=== PATIENT | male | born 1995 | race African-American/Black ===

== ENCOUNTER 2017-09-16 16:14 | Emergency (ER) | payer MEDICAID ==
[~2017-09-16] VITALS: Ht 175.3 cm; Wt 64.4 kg
[~2017-09-16 16:14] MED LIST: LACTULOSE20 GM/301 ORAL
--- NOTE | 2017-09-16 16:46 | Emergency Room Report ---
History of Present Illness General Chief Complaint: Lower Extremity Injury Source: Patient Present Illness HPI Patient presents with complaints of left ankle pain Reports that 2 days ago pain started He feels that there was some mild swelling initially However the swelling has gotten better as he has been sitting Denies any obvious trauma however he reports that he does do a lot of hiking and walks a lot Pain is worse with ambulation and bearing weight Allergies: Coded Allergies: No Known Allergies (Unverified , 12/03/13) Patient History Past Medical History: see triage record Pertinent Family History: none Reviewed Nursing Documentation: PMH: Agreed; PSxH: Agreed Nursing Documentation-PMH Past Medical History: No Stated History Review of Systems All Other Systems: negative except mentioned in HPI Physical Exam Vital Signs Date Time Temp Pulse Resp B/P (MAP) Pulse Ox O2 Delivery O2 Flow Rate FiO2 09/16/17 16:38 98.2 82 18 146/89 98 Room Air 98.2 Sp02 EP Interpretation: reviewed, normal General Appearance: well appearing, no apparent distress Head: normocephalic, atraumatic Eyes: bilateral eye PERRL, bilateral eye EOMI ENT: normal pharynx Neck: full range of motion, supple Respiratory: lungs clear Cardiovascular #1: regular rate, rhythm Gastrointestinal: non tender Musculoskeletal: other - Patient is somewhat uncomfortable on palpation medial malleolus region there was a small bruise noted proximal to that, no obvious swelling, Neurologic: alert, oriented x3 Skin: other - As above Lymphatic: no adenopathy Medical Decision Making Diagnostic Impression: Primary Impression: Injury of lower extremity Additional Impression: Ankle sprain ER Course Given the patient's presentation Imaging studies were obtained no obvious acute pathology is found Patient is ambulatory did not require any splint at this time And will have close outpatient follow-up Other X-Ray Diagnostic Results Other X-Ray Diagnostic Results : X-Ray ordered: Left ankle # of Views/Limited Vs Complete: 3 View Indication: Pain EP Interpretation: Yes Interpretation: no dislocation, no soft tissue swelling, no fractures Impression: No acute disease Electronically Signed by: Wei Thomas DO Last Vital Signs Date Time Temp Pulse Resp B/P (MAP) Pulse Ox O2 Delivery O2 Flow Rate FiO2 09/16/17 16:38 98.2 82 18 146/89 98 Room Air 98.2 Status: improved Disposition: HOME, SELF-CARE Condition: Improved Scripts Ibuprofen* (MOTRIN*) 600 Mg Tablet 600 MG ORAL Q8H PRN for For Pain, #20 TAB 0 Refills Prov: Wei Thomas DO 09/16/17 Additional Instructions: Patient is provided with the discharge instructions notified to follow up with primary doctor in the next 2-3 days otherwise return to the er with any worsening symptoms. Please note that this report is being documented using DRAGON technology. This can lead to erroneous entry secondary to incorrect interpretation by the dictating instrument. Wei Thomas DO Sep 16, 2017 16:46
[2017-09-16] MEDS ORDERED: IBUPROFEN600 MG ORAL (17:06)
[2017-09-16 17:11] VITALS: BP 146/89
--- NOTE | 2017-09-17 14:44 | Diagnostic Imaging Report ---
Indication: Pain Technique: XRAY Ankle Compl Min 3v L Comparison: None Findings: No acute fracture. Ankle mortise intact on these nonstress views. Imaged hindfoot grossly unremarkable. No appreciable ankle joint effusion. No radiopaque foreign body. Impression: No acute fracture or dislocation.
== END 2017-09-16 17:14 | disposition home or self-care (01) ==
LOC: EMR 17:08
DX: S93.402A Sprain of unspecified ligament of left ankle, initial encounter (principal); X58.XXXA Exposure to other specified factors, initial encounter; Y92.9 Unspecified place or not applicable
CPT/HCPCS: 99283

== ENCOUNTER 2018-09-12 21:38 | Emergency (ER) | payer MEDICAID ==
[~2018-09-12] VITALS: Ht 172.7 cm; Wt 60.8 kg
[~2018-09-12 21:38] MED LIST changes: +IBUPROFEN600 MG ORAL
[2018-09-12 21:45] VITALS: BP 131/86
--- NOTE | 2018-09-12 21:58 | Emergency Room Report ---
History of Present Illness General Chief Complaint: Abdominal Pain Source: Patient Present Illness HPI Is a 23-year-old male with no past medical history. He presents with complaint of abdominal pain. Started last night after eating hot fries. He said when he does he get burning sensation. Woke up today with burning sensation to the upper abdomen area. Worse with eating. No vomiting. No diarrhea. Decreased appetite today. Denies any other complaint. Similar symptom in the past. Pain is crampy and burning in nature. 7 out of 10. Allergies: Coded Allergies: No Known Allergies (Unverified , 12/03/13) Patient History Past Medical History: none, see triage record, old chart reviewed Past Surgical History: none Pertinent Family History: none Social History: Denies: smoking Immunizations: other Reviewed Nursing Documentation: PMH: Agreed; PSxH: Agreed Nursing Documentation-PMH Past Medical History: No Stated History Review of Systems Eye: Denies: eye pain, blurred vision ENT: Denies: ear pain, nose congestion, throat swelling Respiratory: Denies: cough, shortness of breath Cardiovascular: Denies: chest pain, palpitations Gastrointestinal: Reports: abdominal pain; Denies: diarrhea, nausea, vomiting Musculoskeletal: Denies: back pain, joint pain Skin: Denies: rash Neurological: Denies: headache, numbness Endocrine: Denies: increased thirst, increased urine Hematologic/Lymphatic: Denies: easy bruising All Other Systems: negative except mentioned in HPI Physical Exam Vital Signs Date Time Temp Pulse Resp B/P (MAP) Pulse Ox O2 Delivery O2 Flow Rate FiO2 09/12/18 21:42 97.9 69 18 131/86 (101) 95 Room Air vitals normal Sp02 EP Interpretation: reviewed, normal General Appearance: well appearing, no apparent distress, alert Head: normocephalic, atraumatic Eyes: bilateral eye PERRL, bilateral eye EOMI ENT: hearing grossly normal, normal pharynx Neck: full range of motion, supple, no meningismus Respiratory: chest non-tender, lungs clear, normal breath sounds Cardiovascular #1: regular rate, rhythm, no murmur Gastrointestinal: normal bowel sounds, non tender, no mass, no organomegaly, no bruit, non-distended Musculoskeletal: back normal, gait/station normal, normal range of motion Psychiatric: mood/affect normal Medical Decision Making Diagnostic Impression: Primary Impression: Abdominal pain Qualified Codes: R10.84 - Generalized abdominal pain ER Course Patient presents with abdominal pain. No evidence of an acute abdomen. Better now. Will discharge home. CT/MRI/US Diagnostic Results CT/MRI/US Diagnostic Results : Imaging Test Ordered: CT abdomen and pelvis Impression Read by radiologist. Fluid filled small bowel, correlate with gastroenteritis. Copious amount of stool in the right and transverse colon. Last Vital Signs Date Time Temp Pulse Resp B/P (MAP) Pulse Ox O2 Delivery O2 Flow Rate FiO2 09/12/18 21:42 97.9 69 18 131/86 (101) 95 Room Air Status: improved Disposition: HOME, SELF-CARE Condition: Stable Scripts Ibuprofen* (MOTRIN*) 600 Mg Tablet 600 MG ORAL THREE TIMES A DAY, #30 TAB 0 Refills Prov: Solomon Cesar MD 09/13/18 Patient Instructions: Abdominal Pain, Adult Additional Instructions: Follow-up with your doctor in 7 days. Return if worse. Solomon Cesar MD Sep 12, 2018 21:58
[2018-09-12] MEDS: Mylanta II UD 30ml ORAL ONE (22:16)
[2018-09-12] MEDS: Lidocaine 2% Visc 15ml soln ORAL ONE (22:17)
[2018-09-12 22:26] LABS: BASOPHILS % (AUTO) 1.6 % (0.0-2.0); EOSINOPHILS % (AUTO) 0.5 % (0.0-3.0); HEMATOCRIT 45.8 % (42.0-52.0); HEMOGLOBIN 15.5 G/DL (14.2-18.0); MEAN CORPUSCULAR VOLUME 90 FL (80-99); MONOCYTES % (AUTO) 8.4 % (1.0-10.0); NEUTROPHILS % (AUTO) 46.5 % (45.0-75.0); PLATELET COUNT 190 K/UL (150-450); RED BLOOD COUNT 5.09 M/UL (4.70-6.10); RED CELL DISTRIBUTION WIDTH 11.3 % (11.6-14.8); WHITE BLOOD COUNT 7.8 K/UL (4.8-10.8)
[2018-09-12 22:28] LABS: APPEARANCE,URINE CLEAR; BILIRUBIN, URINE NEGATIVE (NEGATIVE); GLUCOSE, URINE (UA) NEGATIVE (NEGATIVE); KETONES,URINE NEGATIVE (NEGATIVE); LEUKOCYTE ESTERASE ,URINE NEGATIVE (NEGATIVE); NITRITE,URINE NEGATIVE (NEGATIVE); PH,URINE 6 (4.5-8.0); PROTEIN,URINE NEGATIVE (NEGATIVE); UROBILINOGEN,URINE NORMAL MG/DL (0.0-1.0)
[2018-09-12 22:29] LABS: COLOR,URINE YELLOW
[2018-09-12 22:42] LABS: ANION GAP 6 mmol/L (5-15); BLOOD UREA NITROGEN 8 mg/dL (7-18); CALCIUM 9.7 MG/DL (8.5-10.1); CARBON DIOXIDE 32 MMOL/L (21-32); CHLORIDE 105 MMOL/L (98-107); CREATININE 0.9 MG/DL (0.55-1.30); POTASSIUM 4.3 MMOL/L (3.5-5.1); SODIUM 143 MMOL/L (136-145)
[2018-09-12 22:48] LABS: ALANINE AMINOTRANSFERASE 19 U/L (12-78); ALBUMIN 4.2 G/DL (3.4-5.0); ALBUMIN/GLOBULIN RATIO 1.3 (1.0-2.7); ALKALINE PHOSPHATASE 69 U/L (46-116); ASPARTATE AMINO TRANSFERASE 17 U/L (15-37); BILIRUBIN,TOTAL 0.5 MG/DL (0.2-1.0)
[2018-09-12] MEDS ORDERED: Isovue-300 100ml vial INJ PRN (23:15)
[2018-09-12] MEDS: Morphine Sulfate 4mg/ml Inj (IV USE ONLY) IVP ONE (23:54)
[2018-09-13] MEDS ORDERED: IBUPROFEN600 MG ORAL (00:12)
[2018-09-13 00:15] VITALS: BP 125/82
--- NOTE | 2018-09-13 09:53 | Diagnostic Imaging Report ---
Clinical Indication: Abdominal pain, 7 out of 10 gastric pain and burning for one day Technique: No oral contrast utilized, per emergency room physician request IV administration nonionic contrast. Venous phase spiral acquisition obtained through the abdomen and pelvis. Multiplanar reconstructions were generated. Total dose length product 562.72 mGycm. CTDIvol(s) 10.75 mGy. Dose reduction achieved using automated exposure control Comparison: none Findings: There is questionably a colonic diverticulum noted in the distal descending colon. The colon lumen is upper limits normal in caliber, gas and stool-filled. The appendix is normal. Small bowel loops are fluid-filled but nondistended. No free or loculated intraperitoneal gas or fluid is evident. The distal esophagus, stomach, duodenum are unremarkable. The liver, gallbladder, bile ducts, pancreas, spleen, adrenals, kidneys are all unremarkable. No pelvic mass or adenopathy. No retroperitoneal or mesenteric mass or adenopathy. The prostate is somewhat prominent for age. The included lung bases are clear. The bones are unremarkable. Impression: No acute abnormality Possible colonic diverticulosis. No evidence of diverticulitis Nonspecific prominent colonic gas and stool Prominent, for age, prostate This agrees with the preliminary interpretation provided overnight by [facility]. The CT scanner at [facility] is accredited by the [employer] and the scans are performed using protocols designed to limit radiation exposure to as low as reasonably achievable to attain images of sufficient resolution adequate for diagnostic evaluation.
== END 2018-09-13 00:15 | disposition home or self-care (01) ==
LOC: EMR 21:57
DX: R10.9 Unspecified abdominal pain (principal)
CPT/HCPCS: 36415; 74177; 80053; 81003; 83690; 85025; 96374; 96375; 99284; J2270; Q9967; S0028

== ENCOUNTER 2018-12-13 22:34 | Emergency (ER) | payer MEDICAID ==
[~2018-12-13] VITALS: Ht 170.2 cm; Wt 64.4 kg
--- NOTE | 2018-12-13 23:05 | NUR ---
ED Nurse Note: Pt ambulated to ED from home c/o 12/05 abdominal pain x1.5weeks, reports N denies V/D. VSS Pt is A&Ox4
[2018-12-13 23:16] VITALS: BP 138/90
[2018-12-13] MEDS ORDERED: PRILOSEC OTC20 MG ORAL (23:26)
--- NOTE | 2018-12-13 23:26 | Emergency Room Report ---
History of Present Illness General Chief Complaint: Abdominal Pain Source: Patient Present Illness HPI 23-year-old male with no past medical history he presents with chief lien abdominal pain. Onset about a week now. Mostly supraumbilical and epigastric. He also said he felt his food moving after eat. He felt nauseous after eating. No diarrhea. No chills but denies any other complaint. Pain is minimal. Allergies: Coded Allergies: No Known Allergies (Unverified , 12/03/13) Patient History Past Medical History: see triage record, old chart reviewed Past Surgical History: none Pertinent Family History: none Social History: Denies: smoking Immunizations: other Reviewed Nursing Documentation: PMH: Agreed; PSxH: Agreed Nursing Documentation-PMH Past Medical History: No Stated History Review of Systems Eye: Denies: eye pain, blurred vision ENT: Denies: ear pain, nose congestion, throat swelling Respiratory: Denies: cough, shortness of breath Cardiovascular: Denies: chest pain, palpitations Gastrointestinal: Reports: abdominal pain; Denies: diarrhea, nausea, vomiting Musculoskeletal: Denies: back pain, joint pain Skin: Denies: rash Neurological: Denies: headache, numbness Endocrine: Denies: increased thirst, increased urine Hematologic/Lymphatic: Denies: easy bruising All Other Systems: negative except mentioned in HPI Physical Exam Vital Signs Date Time Temp Pulse Resp B/P (MAP) Pulse Ox O2 Delivery O2 Flow Rate FiO2 12/13/18 22:58 98.2 68 18 138/90 (106) 98 Room Air Vitals normal Sp02 EP Interpretation: reviewed, normal General Appearance: well appearing, no apparent distress, alert Head: normocephalic, atraumatic Eyes: bilateral eye PERRL, bilateral eye EOMI ENT: hearing grossly normal, normal pharynx Neck: full range of motion, supple, no meningismus Respiratory: chest non-tender, lungs clear, normal breath sounds Cardiovascular #1: regular rate, rhythm, no murmur Gastrointestinal: normal bowel sounds, non tender, no mass, no organomegaly, no bruit, non-distended Musculoskeletal: back normal, gait/station normal, normal range of motion Psychiatric: mood/affect normal Medical Decision Making Diagnostic Impression: Primary Impression: Abdominal pain Qualified Codes: R10.13 - Epigastric pain ER Course Patient presents with abdominal pain. This mass that he is feeling is peristalsis. I felt no mass on examination. He has no pain. No evidence of acute abdomen. Will discharge home. Last Vital Signs Date Time Temp Pulse Resp B/P (MAP) Pulse Ox O2 Delivery O2 Flow Rate FiO2 12/13/18 23:16 98.2 18 138/90 98 Room Air 12/13/18 23:16 68 Status: unchanged Disposition: HOME, SELF-CARE Condition: Stable Scripts Omeprazole Magnesium (PRILOSEC OTC) 20 Mg Tablet. 20 MG ORAL DAILY, #30 TAB Prov: Solomon Cesar MD 12/13/18 Referrals: [facility],REFERRING (PCP) Patient Instructions: Abdominal Pain, Adult Additional Instructions: Follow-up with your doctor in 7 days. Return if symptoms worsen. Solomon Cesar MD Dec 13, 2018 23:26
[2018-12-13 23:30] VITALS: BP 138/90
--- NOTE | 2018-12-13 23:30 | NUR ---
ER DISCHARGE NOTE: Patient is cleared to be discharged per ERMD, pt is aox4, on room air, with stable vital signs. pt was given dc and prescription instructions, pt was able to verbalize understanding, pt id band removed. pt is able to ambulate with steady gait. pt took all belongings.
== END 2018-12-13 23:30 | disposition home or self-care (01) ==
LOC: EMR 23:15
DX: R10.13 Epigastric pain (principal)
CPT/HCPCS: 99282

== ENCOUNTER 2019-01-05 20:03 | Emergency (ER) | payer MEDICAID ==
[~2019-01-05] VITALS: Ht 172.7 cm; Wt 62.6 kg
[~2019-01-05 20:03] MED LIST changes: +PRILOSEC OTC20 MG ORAL
[2019-01-05 20:15] VITALS: BP 143/93
--- NOTE | 2019-01-05 20:16 | NUR ---
ED Nurse Note: PT AMBULATED TO ED C/O NECK PAIN, RIGHT ARM, EARACHE AND SORE THROAT X 4 DAYS DENIES TRAUMA TO AREAS
[2019-01-05] MEDS ORDERED: Ketorolac 30mg Inj IV ONE (20:45)
[2019-01-05] MEDS ORDERED: Omnipaque-300 100ml vial INJ PRN (20:45)
[2019-01-05 21:06] LABS: BASOPHILS % (AUTO) 2.1 % (0.0-2.0); EOSINOPHILS % (AUTO) 0.9 % (0.0-3.0); HEMATOCRIT 48.4 % (42.0-52.0); HEMOGLOBIN 16.7 G/DL (14.2-18.0); LYMPHOCYTES % (AUTO) 40.4 % (20.0-45.0); MEAN CORPUSCULAR VOLUME 87 FL (80-99); MONOCYTES % (AUTO) 5.7 % (1.0-10.0); NEUTROPHILS % (AUTO) 50.9 % (45.0-75.0); PLATELET COUNT 199 K/UL (150-450); RED BLOOD COUNT 5.55 M/UL (4.70-6.10); RED CELL DISTRIBUTION WIDTH 10.6 % (11.6-14.8); WHITE BLOOD COUNT 9.5 K/UL (4.8-10.8)
[2019-01-05 21:07] LABS: APPEARANCE,URINE CLEAR; BILIRUBIN, URINE NEGATIVE (NEGATIVE); COLOR,URINE PALE YELLOW; GLUCOSE, URINE (UA) NEGATIVE (NEGATIVE); KETONES,URINE NEGATIVE (NEGATIVE); LEUKOCYTE ESTERASE ,URINE 1+ (NEGATIVE); NITRITE,URINE NEGATIVE (NEGATIVE); PH,URINE 5 (4.5-8.0); PROTEIN,URINE NEGATIVE (NEGATIVE); UROBILINOGEN,URINE NORMAL MG/DL (0.0-1.0)
[2019-01-05 21:21] LABS: ANION GAP 3 mmol/L (5-15); BLOOD UREA NITROGEN 11 mg/dL (7-18); CALCIUM 9.1 MG/DL (8.5-10.1); CARBON DIOXIDE 33 MMOL/L (21-32); CHLORIDE 105 MMOL/L (98-107); CREATININE 0.9 MG/DL (0.55-1.30); POTASSIUM 3.7 MMOL/L (3.5-5.1); SODIUM 141 MMOL/L (136-145)
[2019-01-05 21:31] LABS: ALANINE AMINOTRANSFERASE 25 U/L (12-78); ALBUMIN 4.4 G/DL (3.4-5.0); ALBUMIN/GLOBULIN RATIO 1.3 (1.0-2.7); ALKALINE PHOSPHATASE 69 U/L (46-116); ASPARTATE AMINO TRANSFERASE 13 U/L (15-37); BILIRUBIN,TOTAL 0.4 MG/DL (0.2-1.0)
--- NOTE | 2019-01-05 22:21 | Diagnostic Imaging Report ---
Indication: Neck pain. Mass. Evaluate. Sore throat. No trauma Technique: Continuous helical imaging of the neck was obtained transaxially from the skull base to the upper thoracic spine during intravenous administration of nonionic contrast. 2-D coronal and sagittal reformatted images were obtained. Total Dose length Product (DLP): 361.[address] Dose Index Volume (CTDIvol): 12.5 mGy Comparison: None Findings: Skull base structures are unremarkable. Mastoids are clear bilaterally. The visualized nasopharynx, oropharynx, and hypopharynx appears unremarkable. There is no mass or asymmetry identified. Supraglottic structures including the epiglottis and aryepiglottic folds appear normal. The larynx is unremarkable. The subglottic airway is clear. There is no lymphadenopathy. The parotid, thyroid, submandibular and sublingual glands appear unremarkable. Impression: Negative contrast-enhanced CT of the neck. [facility] has communicated the preliminary results to the Emergency Department. Their findings are largely concordant with this report. The CT scanner at [facility] is accredited by the [employer] and the scans are performed using dose optimization techniques as appropriate to a performed exam including Automatic Exposure control.
--- NOTE | 2019-01-05 22:23 | Emergency Room Report ---
History of Present Illness General Chief Complaint: Pain Source: Patient Present Illness HPI 23-year-old male with no symptom past medical history here complaining of 2 days of sore throat, posterior headache, and 1 day of right-sided neck stiffness. Patient reports that he went to an urgent care yesterday and was diagnosed with strep throat and was started on azithromycin. Reports that he woke up this morning feeling stiff in the right side of the neck now radiating to right shoulder. Denies any recent strenuous physical activity, fall or injury. Denies recent dental work. Denies photophobia, nausea vomiting, abdominal pain. Denies living in a dormitory, recent travel. Patient has full range of motion of neck however rotational movements to the right side of neck are with difficulty. Has not taken medication for symptom relief. Allergies: Coded Allergies: No Known Allergies (Unverified , 12/03/13) Patient History Past Medical History: see triage record Past Surgical History: unable to obtain Pertinent Family History: none Social History: Reports: smoking Immunizations: UTD Reviewed Nursing Documentation: PMH: Agreed; PSxH: Agreed Nursing Documentation-PMH Past Medical History: No Stated History Review of Systems All Other Systems: negative except mentioned in HPI Physical Exam Vital Signs Date Time Temp Pulse Resp B/P (MAP) Pulse Ox O2 Delivery O2 Flow Rate FiO2 01/05/19 20:11 98.4 71 16 143/93 (110) 100 Room Air Sp02 EP Interpretation: reviewed, normal General Appearance: no apparent distress, alert, GCS 15, non-toxic Head: normocephalic, atraumatic Eyes: bilateral eye normal inspection, bilateral eye PERRL ENT: hearing grossly normal, no angioedema, normal voice, TMs + canals normal, uvula midline, tonsillar swelling, pharyngeal erythema Neck: supple, thyroid normal, no meningismus, no bony tend, supple/symm/no masses, tender - Right sided cervical lymph node anteriorly Respiratory: chest non-tender, lungs clear, normal breath sounds, no rhonchi, no respiratory distress, no retraction, no wheezing, speaking full sentences Cardiovascular #1: regular rate, rhythm, no edema, no murmur Cardiovascular #2: 2+ carotid (R), 2+ carotid (L) Gastrointestinal: normal bowel sounds, non tender, soft, non-distended, no guarding, no rebound Rectal: deferred Genitourinary: normal inspection, no CVA tenderness Musculoskeletal: back normal, gait/station normal, normal range of motion, non- tender, no calf tenderness Neurologic: alert, oriented x3, responsive, motor strength/tone normal, sensory intact, speech normal Psychiatric: judgement/insight normal, memory normal, mood/affect normal, no suicidal/homicidal ideation Skin: no rash Lymphatic: adenopathy - Anterior cervical Medical Decision Making PA Attestation Diagnosis and treatment plans were reviewed and discussed with my supervising physician Dr. Chapa Diagnostic Impression: Primary Impression: Tonsillitis with exudate Additional Impression: Cervical strain ER Course 23-year-old male with no symptom past medical history here complaining of 2 days of sore throat, posterior headache, and 1 day of right-sided neck stiffness. Patient reports that he went to an urgent care yesterday and was diagnosed with strep throat and was started on azithromycin. Reports that he woke up this morning feeling stiff in the right side of the neck now radiating to right shoulder. Denies any recent strenuous physical activity, fall or injury. Denies recent dental work. Denies photophobia, nausea vomiting, abdominal pain. Denies living in a dormitory, recent travel. Patient has full range of motion of neck however rotational movements to the right side of neck are with difficulty. Has not taken medication for symptom relief. Ddx considered but are not limited to: strep pharyngitis, URI, tonsillitis, peritonsillar abscess, influneza, meningitis, peritonsillar abscess, cervical sprain, strain, mass Vital signs: are WNL, pt. is afebrile H&PE are most consistent with: Tonsillitis with exudate, cervical spine sprain versus strain ORDERS: CBC, CMP, UA, CT neck soft tissue with contrast, Augmentin, ibuprofen 800, Robaxin ED INTERVENTIONS: Lidocaine patch, dexamethasone, NS bolus DISCHARGE: At this time pt. is stable for d/c to home. Will provide printed patient care instructions, and any necessary prescriptions. Care plan and follow up instructions have been discussed with the patient prior to discharge. Follow-up with your primary care provider for further worsening symptoms return to the emergency room at this time no mass is noted. However if worsening symptoms such as photophobia, headache and nausea return to the emergency room. CT/MRI/US Diagnostic Results CT/MRI/US Diagnostic Results : Imaging Test Ordered: CT neck with contrast, soft tissue Impression FINDINGS: The visualized portions of the middle and posterior fossa of the brain are normal. The soft tissues of the nasopharynx, oropharynx and hypopharynx appear normal. The infratemporal fossa, parapharyngeal and pharyngeal mucosal spaces are preserved. Minimal bilateral shoddy adenopathy is noted. The vascular structures are normal. The parotid, submandibular and thyroid glands are normal in size and attenuation. The airway is patent and the trachea is midline. No bony abnormalities are seen. IMPRESSION: Unremarkable CT of the neck no evidence for inflammatory process. No evidence for abscess Last Vital Signs Date Time Temp Pulse Resp B/P (MAP) Pulse Ox O2 Delivery O2 Flow Rate FiO2 01/05/19 21:57 98.4 01/05/19 20:15 71 16 143/93 100 Room Air Disposition: HOME, SELF-CARE Condition: Stable Patient Instructions: Cervical Strain and Sprain With Rehab-SportsMed, Tonsillitis, [id number] Additional Instructions: Follow-up with your primary care provider for further worsening symptoms return to the emergency room at this time no mass is noted. However if worsening symptoms such as photophobia, headache and nausea return to the emergency room. Abida Kendrick Jan 05, 2019 22:23
[2019-01-05] MEDS ORDERED: ROBAXIN-500MG ORAL (22:24)
[2019-01-05] MEDS ORDERED: IBU800 MG PO (22:24)
[2019-01-05] MEDS ORDERED: AUGMENTIN 875-1 EAC1 ORAL (22:24)
[2019-01-05 22:30] VITALS: BP 143/93
--- NOTE | 2019-01-05 22:30 | NUR ---
ER DISCHARGE NOTE: Patient is cleared to be discharged per ERMD, pt is aox4, on room air, with stable vital signs. Pt able to walk with steady gait. Discharge instructions given to patient verbalized understanding. Pt took all belongings. ID band removed and IV removed without complication
== END 2019-01-05 22:30 | disposition home or self-care (01) ==
LOC: EMR 20:46
DX: J03.90 Acute tonsillitis, unspecified (principal); S16.1XXA Strain of muscle, fascia and tendon at neck level, initial encounter; X58.XXXA Exposure to other specified factors, initial encounter; Y93.9 Activity, unspecified; Y92.9 Unspecified place or not applicable; F17.200 Nicotine dependence, unspecified, uncomplicated
CPT/HCPCS: 36415; 70491; 80053; 81001; 85025; 96361; 96374; J1885; J8540; Q9967; Z7502; 99284; J7030

== ENCOUNTER 2019-02-07 22:29 | Emergency (ER) | payer MEDICAID ==
[~2019-02-07] VITALS: Ht 172.7 cm; Wt 62.6 kg
[~2019-02-07 22:29] MED LIST changes: +AUGMENTIN 875-1 EAC1 ORAL; +IBU800 MG PO; +ROBAXIN-500MG ORAL
--- NOTE | 2019-02-07 23:00 | NUR ---
ED Nurse Note: pt walked in c/o right earache and sorethroat for past three days but denies other symptoms. pt afebrile, vss, will cont monitor.
[2019-02-07 23:01] VITALS: BP 145/89
--- NOTE | 2019-02-07 23:29 | NUR ---
ED Nurse Note: pt reports that he had strep throat a month ago which he was taking amoxicillin for.
--- NOTE | 2019-02-07 23:53 | Emergency Room Report ---
History of Present Illness General Chief Complaint: Sore Throat Source: Patient Present Illness HPI Is a 23-year-old male with no past medical history. He presents with complaint of sore throat and ear pain. Onset for last 3 days. Also with low-grade fever. Slight congestion. No cough. No nausea no vomiting. Worse with eating and drinking. Better with rest. Pain is 8 out of 10. Allergies: Coded Allergies: No Known Allergies (Unverified , 12/03/13) Patient History Past Medical History: see triage record, old chart reviewed Past Surgical History: none Pertinent Family History: none Social History: Denies: smoking Immunizations: other Reviewed Nursing Documentation: PMH: Agreed Nursing Documentation-PMH Past Medical History: No Stated History Review of Systems Eye: Denies: eye pain, blurred vision ENT: Reports: ear pain, throat pain; Denies: nose congestion, throat swelling Respiratory: Denies: cough, shortness of breath Cardiovascular: Denies: chest pain, palpitations Gastrointestinal: Denies: abdominal pain, diarrhea, nausea, vomiting Musculoskeletal: Denies: back pain, joint pain Skin: Denies: rash Neurological: Denies: headache, numbness Endocrine: Denies: increased thirst, increased urine Hematologic/Lymphatic: Denies: easy bruising All Other Systems: negative except mentioned in HPI Physical Exam Vital Signs Date Time Temp Pulse Resp B/P (MAP) Pulse Ox O2 Delivery O2 Flow Rate FiO2 02/07/19 22:52 98.2 68 18 145/89 (107) 98 Room Air Vitals normal Sp02 EP Interpretation: reviewed, normal General Appearance: well appearing, no apparent distress, alert Head: normocephalic, atraumatic Eyes: bilateral eye PERRL, bilateral eye EOMI ENT: hearing grossly normal, normal pharynx, TMs + canals normal, pharyngeal erythema Neck: full range of motion, supple, no meningismus Respiratory: chest non-tender, lungs clear, normal breath sounds Cardiovascular #1: regular rate, rhythm, no murmur Gastrointestinal: normal bowel sounds, non tender, no mass, no organomegaly, no bruit, non-distended Musculoskeletal: back normal, normal range of motion, gait/station normal Psychiatric: mood/affect normal Medical Decision Making Diagnostic Impression: Primary Impression: Pharyngitis Qualified Codes: J02.9 - Acute pharyngitis, unspecified ER Course Patient with pharyngitis. Most likely viral in nature. Because of the duration of his symptoms, will put on antibiotics. No evidence of peritonsillar abscess, retropharyngeal abscess or Andrews angina. Last Vital Signs Date Time Temp Pulse Resp B/P (MAP) Pulse Ox O2 Delivery O2 Flow Rate FiO2 02/07/19 23:01 98.2 68 18 145/89 98 Room Air Status: improved Disposition: HOME, SELF-CARE Condition: Stable Referrals: NON PHYSICIAN (PCP) Patient Instructions: Sore Throat Additional Instructions: Increase Fluids. Follow with your doctor in 7 days. Return if worse. Solomon Cesar MD Feb 07, 2019 23:53
[2019-02-07] MEDS ORDERED: ZITHROMAX250 MG ORAL (23:55)
[2019-02-07] MEDS ORDERED: IBUPROFEN600 MG ORAL (23:55)
[2019-02-07 23:58] VITALS: BP 145/89
--- NOTE | 2019-02-07 23:58 | NUR ---
ER DISCHARGE NOTE: Patient is cleared to be discharged per ERMD, pt is aox4, with stable vital signs. pt was given dc and prescription instructions, pt was able to verbalize understanding, pt id band removed without complications. pt is able to ambulate with steady gait. pt took all belongings and left with mother
== END 2019-02-07 23:58 | disposition home or self-care (01) ==
LOC: EMR 23:25
DX: J02.9 Acute pharyngitis, unspecified (principal)
CPT/HCPCS: 99282

== ENCOUNTER 2019-12-10 20:34 | Emergency (ER) | payer MEDICAID ==
[~2019-12-10] VITALS: Ht 172.7 cm; Wt 67.1 kg
[~2019-12-10 20:34] MED LIST changes: +ZITHROMAX250 MG ORAL
[2019-12-10 20:40] VITALS: BP 150/81
--- NOTE | 2019-12-10 20:40 | NUR ---
ED Nurse Note: Pt walked into ED from home c/o lower back pain 12/05. Denies trauma, denies fall. Pt states long drive to [place] and slept in the car for a long period of time, when woke up pt has pain worsened with movement.
[2019-12-10] MEDS ORDERED: Ketorolac 30mg Inj ONE (21:11)
[2019-12-10] MEDS ORDERED: CYCLOBENZAPRINE10 MG ORAL (21:13)
[2019-12-10] MEDS ORDERED: NAPROXEN500 M2 ORAL (21:13)
[2019-12-10] MEDS ORDERED: Ketorolac 30mg Inj IM ONE (21:15)
[2019-12-10 21:17] VITALS: BP 138/80
--- NOTE | 2019-12-10 21:17 | NUR ---
ER DISCHARGE NOTE: Patient is cleared to be discharged per ERMD, pt is aox4, on room air, with stable vital signs. Encouraged pt to stay 15 minutes to monitor for medication reaction but refused. pt was given dc and prescription instructions, pt was able to verbalize understanding, pt id band removed. pt is able to ambulate with steady gait. pt took all belongings.
--- NOTE | 2019-12-10 22:25 | Emergency Room Report ---
History of Present Illness General Chief Complaint: Back Pain-No Injury Source: Patient Present Illness HPI Disclaimer: Please note that this report is being documented using DRAGON technology. This can lead to erroneous entry secondary to incorrect interpretation by the dictating instrument. HPI: 24-year-old male presents with mid back pain for 1 week. He reports feeling muscle tightness with pain with moving. Denies any cough, shortness of breath, fever, nausea, vomiting or urinary complaints. Pain is currently 8 out of 10. He has not really taken any medication to relieve his pain. No history of back pain in the past. Allergies: Coded Allergies: No Known Allergies (Unverified , 12/03/13) COVID-19 Screening Contact w/high risk pt: No Experienced COVID-19 symptoms?: No COVID-19 Testing performed [employer]: No Patient History Reviewed Nursing Documentation: PMH: Agreed; PSxH: Agreed Nursing Documentation-PMH Past Medical History: No Stated History Review of Systems All Other Systems: negative except mentioned in HPI Physical Exam Vital Signs Date Time Temp Pulse Resp B/P (MAP) Pulse Ox O2 Delivery O2 Flow Rate FiO2 12/10/19 20:37 98.4 80 16 150/81 (104) 99 Room Air Sp02 EP Interpretation: reviewed, normal General Appearance: well appearing, no apparent distress Head: normocephalic, atraumatic Eyes: bilateral eye PERRL, bilateral eye EOMI ENT: hearing grossly normal, moist mucus membranes Neck: full range of motion, supple Respiratory: lungs clear, normal breath sounds, no rhonchi, no respiratory distress, no retraction, no wheezing Cardiovascular #1: normal peripheral pulses, regular rate, rhythm, no murmur Gastrointestinal: non tender, soft, non-distended, no guarding Musculoskeletal: other - No midline tenderness of the spine step-off or deformity, paraspinal muscle tightness noted and tenderness of the paraspinal muscles noted at the mid thoracic spine no CVA tenderness bilaterally Neurologic: alert, oriented x3, no focal defects Skin: normal color, warm/dry Medical Decision Making Diagnostic Impression: Primary Impression: Back pain ER Course Differential diagnosis included but not limited to muscle spasm, back strain, arthritis, contusion, less likely UTI, pneumonia or PE. Patient in no acute distress. He had bilateral paraspinal muscle tenderness noted. Pain was worse with movement. I do suspect most likely a musculoskeletal etiology. Did recommend anti-inflammatories and muscle relaxants. Stretching, p.o. hydration. Did recommend follow-up with PMD and referral to PT if not improved. Low suspicion for fracture or spinal cord lesion. Patient neurologically intact ambulatory. Discharge home with return precautions. Last Vital Signs Date Time Temp Pulse Resp B/P (MAP) Pulse Ox O2 Delivery O2 Flow Rate FiO2 12/10/19 21:17 98.1 81 16 138/80 99 Room Air Disposition: HOME, SELF-CARE Condition: Stable Scripts Cyclobenzaprine Hcl* (FLEXERIL*) 10 Mg Tablet 10 MG ORAL QHS PRN for back pain, #10 TAB Prov: Deandre Gaston M.D. 12/10/19 Naproxen* (NAPROXEN*) 500 Mg Tablet 500 MG ORAL TWICE A WEEK PRN for For Pain, #60 TAB 0 Refills Prov: Deandre Gaston M.D. 12/10/19 Patient Instructions: Back Pain, Adult Additional Instructions: Patient is instructed to follow-up with her primary care doctor, primary care clinic or [facility] in 1 to 2 days. Patient instructed to return for any worsening symptoms or concerns. Deandre Gaston M.D. Dec 10, 2019 22:25
== END 2019-12-10 21:17 | disposition home or self-care (01) ==
LOC: EMR 20:52
DX: M54.9 Dorsalgia, unspecified (principal)
CPT/HCPCS: 96372; J1885; Z7502; 99283